=== PATIENT | female | born 1995 | race Caucasian/White ===

== ENCOUNTER 2020-07-29 17:37 | Emergency (ER) | payer BC ==
--- NOTE | 2020-07-29 18:16 | EDM.PDOC ---
ED HPI GENERAL MEDICAL PROBLEM - General Chief Complaint: General Stated Complaint: BLOOD IN STOOL AND DIZZY Time Seen by Provider: 07/29/20 17:42 Source of Information: Reports: Patient, RN Notes Reviewed History Limitations: Reports: No Limitations - History of Present Illness INITIAL COMMENTS - FREE TEXT/NARRATIVE: Patient is a 25 year old female presenting to the ER with c/o rectal bleeding. She states that she has had diarrhea for 2 months, but has had loose stools for most of her life. She is currently taking an antibiotic to treat "an unknown infection" as a result of an elevated white blood cell count but is not sure what antibiotic she is taking. She states she has 2 to 3 days left of a 10-day course of this antibiotic. Over the last 3 days, she has had a small amount of blood in her stool. States it is present on the toilet paper when she wipes and that there is also some in the toilet bowl. She has seen Abril Loredo NP for a surgical consult. States she is scheduled to have a upper and lower endoscopy completed in a couple weeks. She complains of rectal pain with having bowel movements. States that she thinks the bleeding is related to hemorrhoids. She called and discussed her bleeding as well as some intermittent dizziness and headaches today with Abril Beard NP, and was told that she needs to come to the ER. Patient states that she does not think it is an emergency but she was advised to come anyway. She denies any abdominal pain, dizziness, or headache at this time. States she does occasionally have some abdominal cramping but it is not present now. She did have a bowel movement prior to coming to ER and states there was a small amount of blood when she wiped that time as well. She did have a blood drawn at [facility] today to have her WBCs rechecked, however she has not received any information on the results of this. Denies any fever, chills, nausea or vomiting. - Related Data Allergies Allergy/AdvReac Type Severity Reaction Status Date / Time iodine Allergy Rash Verified 07/29/20 17:56 latex Allergy Rash Verified 07/29/20 17:56 nitrofurantoin Allergy Vomiting Verified 07/29/20 17:56 [From Macrobid] Penicillins Allergy Other Verified 07/29/20 17:56 pineapple Allergy Hives Verified 07/29/20 17:56 shellfish derived Allergy Anaphylactic Verified 07/29/20 17:56 Shock Home Meds: Home Meds . [No Known Home Meds] 07/29/20 [History] ED ROS GENERAL - Review of Systems Review Of Systems: See Below Constitutional: Reports: No Symptoms. Denies: Fever, Chills HEENT: Reports: No Symptoms Respiratory: Reports: No Symptoms Cardiovascular: Reports: No Symptoms Endocrine: Reports: No Symptoms GI/Abdominal: Reports: Bloody Stool, Diarrhea. Denies: Abdominal Pain, Nausea, Vomiting : Reports: No Symptoms Musculoskeletal: Reports: No Symptoms Skin: Reports: No Symptoms Neurological: Reports: Dizziness, Headache Psychiatric: Reports: No Symptoms Hematologic/Lymphatic: Reports: No Symptoms Immunologic: Reports: No Symptoms ED EXAM, GENERAL - Physical Exam Exam: See Below General Appearance: Alert, WD/WN, No Apparent Distress Respiratory/Chest: No Respiratory Distress, Lungs Clear, Normal Breath Sounds, No Accessory Muscle Use, Chest Non-Tender Cardiovascular: Normal Peripheral Pulses, Regular Rate, Rhythm, No Edema, No Gallop, No JVD, No Murmur, No Rub GI/Abdominal: Normal Bowel Sounds, Soft, Non-Tender, No Organomegaly, No Distention, No Abnormal Bruit, No Mass Rectal (Female) Exam: Normal Exam, Normal Rectal Tone, Other (No stool in the rectal vault was obtained on rectal exam, therefore the heme stool was negative. No visible external hemorrhoids or fissures.). No: Bloody Stool Neurological: Alert, Oriented, CN II-XII Intact, Normal Cognition, Normal Gait, Normal Reflexes, No Motor/Sensory Deficits Psychiatric: Normal Affect, Normal Mood Skin Exam: Warm, Dry, Intact, Normal Color, No Rash Course - Vital Signs Last Recorded V/S: Last Vital Signs Temp 97.0 F 07/29/20 17:57 Pulse 77 07/29/20 17:57 Resp 16 07/29/20 17:57 BP 118/76 07/29/20 17:57 Pulse Ox 100 07/29/20 17:57 - Orders/Labs/Meds Meds: Medications Discontinued Medications Generic Name Dose Route Start Last Admin Trade Name Freq PRN Reason Stop Dose Admin Sodium Chloride 1,000 mls @ 999 mls/hr 07/29/20 18:46 Normal Saline IV 07/29/20 19:46 NOW STA - Re-Assessments/Exams Free Text/Narrative Re-Assessment/Exam: Patient is a 25-year-old female presenting to the emergency department at the request of the surgical CRISIS NURSE at [facility] for evaluation with regards to intermittent rectal bleeding for the last 3 days, as well as some dizziness and headaches today. She denies any dizziness or headaches at this time. On exam, she has no abdominal tenderness. Rectal exam was completed and showed no signs of blood, however there was also no stool in the rectal vault. There is no visible external hemorrhoids or fissures. As patient is not having any abdominal pain at this time and is currently scheduled to have an upper and lower endoscopy in a couple weeks, I do not see any indication for a CT scan at this point. I have ordered CBC, CMP, CRP, and a 1 L bolus of normal saline. I will request records from [facility] with her last few blood draws as well as documentation of the antibiotic she is taking. 07/29/20 19:53 I was notified by nursing staff that the patient has eloped from the facility. They report that they were having difficulty with an IV start. Lab had come over to draw her, however she had just left. Departure - Departure Time of Disposition: 19:53 Disposition: Eloped 07 Condition: Good Clinical Impression: Rectal bleeding - Discharge Information *PRESCRIPTION DRUG MONITORING PROGRAM REVIEWED*: No *COPY OF PRESCRIPTION DRUG MONITORING REPORT IN PATIENT LUCIAN: No Referrals: Poppy Norwood CRISIS NURSE [Primary Care Provider] - Abril Loredo NP [Nurse Practitioner] - Forms: ED Department Discharge Sepsis Event Note (ED) - Evaluation Sepsis Screening Result: No Definite Risk - Focused Exam Vital Signs: Vital Signs Temp Pulse Resp BP Pulse Ox 07/29/20 17:57 97.0 F 77 16 118/76 100
[2020-07-29] MEDS ORDERED: Sodium Chloride 0.9% 1,000 ML IV STA (18:46)
== END 2020-07-29 19:40 | disposition left against medical advice (07) ==
LOC: JD.ED 17:37
DX: K62.5 Hemorrhage of anus and rectum (principal); Z91.048 Other nonmedicinal substance allergy status; Z91.040 Latex allergy status; Z88.1 Allergy status to other antibiotic agents; Z88.0 Allergy status to penicillin; Z91.013 Allergy to seafood; Z91.018 Allergy to other foods
CPT/HCPCS: 99283

== ENCOUNTER 2021-06-12 19:23 | Emergency (ER) | payer BC, MEDICAID ==
[2021-06-12] MEDS ORDERED: Lidocaine 1% 10 ML MDV INJECT ONE (19:51)
--- NOTE | 2021-06-12 20:31 | EDM.PDOC ---
ED HPI GENERAL MEDICAL PROBLEM - General Chief Complaint: Laceration Stated Complaint: LT INDEX FINGER LAC Time Seen by Provider: 06/12/21 19:34 Source of Information: Reports: Patient, RN Notes Reviewed History Limitations: Reports: No Limitations - History of Present Illness INITIAL COMMENTS - FREE TEXT/NARRATIVE: Patient is a 25-year-old female presenting to the emergency department with complaints of laceration to her left index finger. She was cutting a diaper for her dog when it slipped and cut her finger. She is up-to-date on her tetanus vaccination. Left Hand Pain Score (Numeric/FACES): 3 - Related Data Allergies Allergy/AdvReac Type Severity Reaction Status Date / Time iodine Allergy Rash Verified 06/12/21 19:38 latex Allergy Rash Verified 06/12/21 19:38 nitrofurantoin Allergy Vomiting Verified 06/12/21 19:38 [From Macrobid] Penicillins Allergy Other Verified 06/12/21 19:38 pineapple Allergy Hives Verified 06/12/21 19:38 shellfish derived Allergy Anaphylactic Verified 06/12/21 19:38 Shock Home Meds: Home Meds . [No Known Home Meds] 07/29/20 [History] Past Medical History HEENT History: Reports: Sinusitis Respiratory History: Reports: Bronchitis, Recurrent Gastrointestinal History: Reports: Chronic Diarrhea, Colon Polyp, Other (See Below) Other Gastrointestinal History: "pre colon cancer" Genitourinary History: Reports: Renal Disease, Other (See Below) Other Genitourinary History: urinary reflux [employer] History: Reports: Dysfunctional Uterine Bleeding, , Other (See Below) Other [employer] History: yeast infections, BV, heavy cramping, Musculoskeletal History: Reports: Back Pain, Chronic Neurological History: Reports: Headaches, Chronic, Migraines Psychiatric History: Reports: Anxiety, Depression, Learning Disability Endocrine/Metabolic History: Reports: Obesity/BMI 30+ Dermatologic History: Reports: Other (See Below) Other Dermatologic History: skin autoimmune disease - Infectious Disease History Infectious Disease History: Reports: Chicken Pox, Novel Coronavirus Social & Family History - Tobacco Use Tobacco Use Status *Q: Current Every Day Tobacco User Years of Tobacco use: 1 Packs/Tins Daily: 1 - Caffeine Use Caffeine Use: Reports: Coffee - Recreational Drug Use Recreational Drug Use: No ED ROS GENERAL - Review of Systems Review Of Systems: Comprehensive ROS is negative, except as noted in HPI. ED EXAM, SKIN/RASH Exam: See Below Exam Limited By: No Limitations General Appearance: Alert, WD/WN, No Apparent Distress Respiratory/Chest: No Respiratory Distress, Lungs Clear, Normal Breath Sounds, No Accessory Muscle Use, Chest Non-Tender Cardiovascular: Normal Peripheral Pulses, Regular Rate, Rhythm, No Edema, No Gallop, No JVD, No Murmur, No Rub Neurological: Alert, Oriented, Normal Cognition, No Motor/Sensory Deficits Psychiatric: Normal Affect, Normal Mood Skin: Other (1.5 cm slightly gaping laceration to the pad of the left index finger. No active bleeding.) ED SKIN PROCEDURES - Laceration/Wound Repair Left Digit - 2nd (Index) Appearance: Subcutaneous Anesthetic Type: Local Local Anesthesia - Lidocaine (Xylocaine): 1% Plain Local Anesthetic Volume: 1cc Skin Prep: Chlorhexidine (Hibiciens), Saline, Sterile Drape Exploration/Debridement/Repair: Wound Explored, No Foreign Material Found Closed with: Sutures Lac/Wound length In cm: 1.5 Suture Size: 4-0 # of Sutures: 4 Suture Type: Nylon Sterile Dressing Applied: Nurse Tetanus Status Addressed: Yes Complications: No Course - Vital Signs Last Recorded V/S: Last Vital Signs Temp 97.8 F 06/12/21 19:35 Pulse 88 06/12/21 19:35 Resp 16 06/12/21 19:35 BP 147/77 H 06/12/21 19:35 Pulse Ox 100 06/12/21 19:35 - Orders/Labs/Meds Meds: Medications Discontinued Medications Generic Name Dose Route Start Last Admin Trade Name Soren PRN Reason Stop Dose Admin Lidocaine HCl 10 ml 06/12/21 19:51 06/12/21 20:16 Lidocaine 1% 10 Ml Mdv INJECT 06/12/21 19:52 10 ml ONETIME ONE Administration Departure - Departure Time of Disposition: 20:30 Disposition: Home, Self-Care 01 Condition: Good Clinical Impression: Laceration - Discharge Information *PRESCRIPTION DRUG MONITORING PROGRAM REVIEWED*: No *COPY OF PRESCRIPTION DRUG MONITORING REPORT IN PATIENT LUCIAN: No Instructions: Laceration Care, Adult Referrals: Poppy Norwood, GROUP TESTER [Primary Care Provider] - Additional Instructions: You were seen in the emergency department today for a laceration to your left index finger. The wound was cleansed and closed with 4 sutures. These should stay intact until June 20. After that time they may be removed in the clinic by a nurse. Keep the wound clean and dry. Wash with normal soap and water twice daily. Do not submerge the wound in water. Watch for signs of infection including increased redness, swelling, or purulent drainage. If these should occur, you should be seen either in the clinic or in the emergency department as antibiotic treatment may be needed. Return to the ER as needed. Sepsis Event Note (ED) - Focused Exam Vital Signs: Vital Signs Temp Pulse Resp BP Pulse Ox 06/12/21 19:35 97.8 F 88 16 147/77 H 100
== END 2021-06-12 20:54 | disposition home or self-care (01) ==
LOC: JD.ED 19:23
DX: S61.211A Laceration without foreign body of left index finger without damage to nail, initial encounter (principal); E66.9 Obesity, unspecified; Z68.41 Body mass index [BMI] 40.0-44.9, adult; Z72.0 Tobacco use; Z91.040 Latex allergy status; Z88.8 Allergy status to other drugs, medicaments and biological substances; Z88.1 Allergy status to other antibiotic agents; Z88.0 Allergy status to penicillin; Z91.018 Allergy to other foods; Z91.013 Allergy to seafood; W27.2XXA Contact with scissors, initial encounter
CPT/HCPCS: 12001; 99282-25

== ENCOUNTER 2022-04-18 07:36 | Day surgery (SDC) | payer BC, MEDICAID ==
[~2022-04-18 07:36] MED LIST: Lactated Ringers 1,000 ML IV SCH; Lidocaine 1%/Sod Bicarbonate in NS 8.4% 1 ML Syringe IDERM PRN; Sodium Chloride 0.9% 10 ML Syringe FLUSH PRN; Sodium Chloride 0.9% 10 ML Syringe FLUSH SCH
[2022-04-18] MEDS ORDERED: fentaNYL 100 MCG/2 ML SDV ONE (08:15)
[2022-04-18] MEDS ORDERED: Midazolam 1 MG/ML 2 ML SDV ONE (08:15)
[2022-04-18] MEDS ORDERED: Propofol 200 MG/20 ML SDV ONE (08:16)
[2022-04-19] MEDS ORDERED: Sodium Chloride 0.9% 10 ML Syringe FLUSH SCH (00:01)
[2022-04-19] MEDS ORDERED: Lidocaine 1%/Sod Bicarbonate in NS 8.4% 1 ML Syringe IDERM PRN (00:01)
[2022-04-19] MEDS ORDERED: Sodium Chloride 0.9% 10 ML Syringe FLUSH PRN (00:01)
[2022-04-19] MEDS ORDERED: Lactated Ringers 1,000 ML IV SCH (00:01)
== END 2022-04-18 10:40 | disposition home or self-care (01) ==
LOC: JD.SDS 07:36
PROVIDERS: ATTEND Surgery
DX: K58.0 Irritable bowel syndrome with diarrhea (principal); K29.60 Other gastritis without bleeding; K29.80 Duodenitis without bleeding; E66.9 Obesity, unspecified; G43.909 Migraine, unspecified, not intractable, without status migrainosus; F17.210 Nicotine dependence, cigarettes, uncomplicated; Z83.79 Family history of other diseases of the digestive system; Z88.0 Allergy status to penicillin; Z91.040 Latex allergy status; Z88.8 Allergy status to other drugs, medicaments and biological substances; Z91.013 Allergy to seafood; Z86.16 Personal history of COVID-19; Z68.36 Body mass index [BMI] 36.0-36.9, adult
CPT/HCPCS: 43239; 45380; J2250; J2704; J3010; J7120; 00813

== ENCOUNTER 2024-02-26 05:15 | Emergency (ER) | payer SELFPAY ==
[2024-02-26] MEDS: Orphenadrine 60 MG/2 ML Inj IV ONE (06:04)
[2024-02-26] MEDS: Ketorolac 30 MG/ML SDV IVPUSH ONE (06:04)
[2024-02-26] MEDS: Triamcinolone Acetonide 40 MG/ML 1 ML SDV IM ONE (06:08)
== END 2024-02-26 07:02 | disposition home or self-care (01) ==
LOC: JD.ED 05:15
DX: M51.86 Other intervertebral disc disorders, lumbar region (principal); M54.16 Radiculopathy, lumbar region; E66.9 Obesity, unspecified; F17.210 Nicotine dependence, cigarettes, uncomplicated; Z88.0 Allergy status to penicillin; Z91.040 Latex allergy status; Z91.018 Allergy to other foods; Z91.013 Allergy to seafood; Z91.041 Radiographic dye allergy status; Z88.8 Allergy status to other drugs, medicaments and biological substances; Z79.899 Other long term (current) drug therapy; Z86.16 Personal history of COVID-19; Z68.41 Body mass index [BMI] 40.0-44.9, adult
CPT/HCPCS: 96372; 96374; 96375; 99283; J1885; J2360; J3301

== ENCOUNTER 2024-06-04 10:38 | Emergency (ER) | payer MEDICAID ==
[2024-06-04] MEDS: Cyclobenzaprine 10 MG Tab PO ONE (12:52)
[2024-06-04] MEDS: Ketorolac 60 MG/2 ML SDV IM ONE (12:53)
== END 2024-06-04 14:47 | disposition home or self-care (01) ==
LOC: JD.ED 10:38
DX: M54.41 Lumbago with sciatica, right side (principal); E66.9 Obesity, unspecified; Z86.16 Personal history of COVID-19; Z79.899 Other long term (current) drug therapy; Z88.8 Allergy status to other drugs, medicaments and biological substances; Z88.0 Allergy status to penicillin; Z91.018 Allergy to other foods; Z91.013 Allergy to seafood; Z91.040 Latex allergy status; Z68.41 Body mass index [BMI] 40.0-44.9, adult
CPT/HCPCS: 96372; 99283; A9270; J1885